=== PATIENT | female | born 1980 | race Caucasian/White ===

== ENCOUNTER 2016-06-05 18:33 | Emergency (ER) | payer BC ==
[~2016-06-05] VITALS: Ht 172.7 cm; Wt 59.6 kg
[~2016-06-05 18:33] MED LIST: IBUP600T44 PO; PRENTAB26 PO
[2016-06-05 18:36] VITALS: TEMP 36.8; Ht 172.7 cm; Wt 59.6 kg
[2016-06-05] MEDS ORDERED: AZITTAB PO (19:18)
[2016-06-05] MEDS ORDERED: PRED20TA PO (19:20)
[2016-06-05] MEDS ORDERED: CITA20TA9 PO (19:22)
--- NOTE | 2016-06-05 19:53 | DIAGNOSTIC IMAGING REPORT ---
CHEST ONE VIEW PORTABLE CLINICAL HISTORY: right sided chest pain pain COMPARISON STUDY: None FINDINGS: The bones soft tissues and hemidiaphragms are normal. The cardiomediastinal silhouette is normal. The lungs are clear. The pulmonary vasculature is normal. IMPRESSION: Negative chest. Electronically signed by: Logan Menjivar M.D. 06/05/2016 7:50 PM Dictated Date/Time: 06/05/2016 7:50 PM
[2016-06-05 19:59] LABS: BASO % 0.2 %; BASO ABS # 0.04 K/uL (0-0.2); COMPLETE YES; EOS % 0.6 %; HEMATOCRIT 37.4 % (37-47); IG% 0.3 %; LYMPH % 20.8 %; LYMPH ABS # 4.78 K/uL (1.2-3.4); MEAN CELL VOLUME 91.7 fL (80-100); MEAN CORPUSCULAR HEMOGLOBIN 32.4 pg (25-34); MEAN CORPUSCULAR HGB CONC 35.3 g/dl (32-36); MEAN PLATELET VOLUME 9.3 fL (7.4-10.4); MONO % 11.2 %; NEUT % 66.9 %; PLATELET COUNT 363 K/uL (130-400); RED BLOOD COUNT 4.08 M/uL (4.2-5.4); WHITE BLOOD COUNT 22.95 K/uL (4.8-10.8)
[2016-06-05 20:00] VITALS: O2SAT 98
[2016-06-05 20:28] LABS: ALT/SGPT 24 U/L (12-78); AST/SGOT 14 U/L (15-37); BLOOD UREA NITROGEN 26 mg/dl (7-18); BUN/CREATININE RATIO 34.6 (10-20); CALCIUM 9.5 mg/dl (8.5-10.1); CARBON DIOXIDE 30 mmol/L (21-32); CHLORIDE 104 mmol/L (98-107); CREATININE 0.75 mg/dl (0.60-1.20); GLUCOSE 92 mg/dl (70-99); POTASSIUM 3.4 mmol/L (3.5-5.1); SODIUM 142 mmol/L (136-145)
[2016-06-05 20:33] LABS: ALB/GLOB RATIO 0.9 (0.9-2); ALKALINE PHOSPHATASE 100 U/L (45-117); CKMB/CK RATIO 1.3 (0-3.0)
[2016-06-05] MEDS ORDERED: OPTIRAY 320 IV PRN (20:45)
--- NOTE | 2016-06-05 21:02 | DIAGNOSTIC IMAGING REPORT ---
CHEST CTA for PULMONARY ARTERIES CT DOSE: 253.14 mGy.cm HISTORY: Chest pain dyspnea TECHNIQUE: Multiaxial CT images of the chest were performed following the intravenous administration of contrast to evaluate the pulmonary arteries. Maximal intensity projection images were also obtained. COMPARISON STUDY: None. FINDINGS: There is a normal caliber thoracic aorta with no evidence for dissection. There is no evidence for pulmonary embolus. No pleural effusions. No pneumothorax. The liver and spleen are unremarkable. No mediastinal or hilar lymphadenopathy. The central airways are patent. The lungs demonstrate scattered consolidative infiltrative changes. These are seen in the right upper lobe anteriorly, medial aspect left lower lobe, to a minimal extent right base within the right lower lobe distribution. These areas are presumably inflammatory although follow-up to resolution is suggested. IMPRESSION: 1. Study is negative for pulmonary embolus. 2. Consolidated parenchymal infiltrative changes anterior aspect right upper lobe, left and to a lesser extent right lower lobe distributions. 3. Although most likely inflammatory, close follow-up to complete resolution is indicated. Electronically signed by: Logan Menjivar M.D. 06/05/2016 9:00 PM Dictated Date/Time: 06/05/2016 8:58 PM
[2016-06-05 21:09] VITALS: BP 124/85; PULSE 83; O2SAT 99
[2016-06-05] MEDS ORDERED: AMOX875T PO (21:24)
--- NOTE | 2016-06-05 21:25 | EMERGENCY ROOM VISIT NOTE ---
History First contact with patient: 19:00 Chief Complaint: CHEST PAIN Stated Complaint: CHEST PAIN Nursing Triage Summary: Pt reports chest pain that started 1hour [employer] while watching daughter at [employer] class. Denies any cardiac hx. Pain gets worse with deep breath. History of Present Illness The patient is a 35 year old female who presents to the Emergency Room with complaints of right sided chest pain which began one hour prior to arrival. The patient states that she was watching her daughter at [employer] practice when she developed a sharp right-sided chest pain with associated shortness of breath. She took Aleve with some relief of the pain. She states that she was diagnosed with bronchitis last week by her primary care provider and has been taking a Z-Lonny and steroids for the past 4 days. She states her symptoms have not been improving. She does report some issues with her ribs in March. She states that she was having pain in the right ribs and was told that they may be inflamed and was given a course of steroids at that time as well. The patient states that she had fevers last week, but denies any fevers today. She does not smoke. She denies any history or family history of blood clots. She does not take control pills. The patient denies any nausea, vomiting, abdominal pain, syncope or palpitations. Review of Systems A complete 10-point Review of Systems was discussed with the patient, with pertinent positives and negatives listed in the History of Present Illness. All remaining Review of Systems questions can be considered negative unless otherwise specified. Past Medical/Surgical History Medical Problems: (1) Bilateral tubal ligation (2) section Social History Smoking Status: Never Smoker Alcohol Use: occasionally Current/Historical Medications Scheduled Amoxicillin & Pot Clavulanate (Augmentin 875-125 mg), 1 TAB PO BID Azithromycin (Zithromax Z-Lonny), 1 PKT PO UD Citalopram Hydrobromide (Celexa), 20 MG PO DAILY Multivit/Min/Iron/Fol Ac/Pren ( Vitamin), 1 TAB PO DAILY Prednisone (Prednisone), 40 MG PO DAILY Allergies Coded Allergies: Cephalosporins (Verified Allergy, Unknown, 08/27/11) Doxycycline (Verified Allergy, Unknown, 08/27/11) Cefazolin (Verified Allergy, UNSURE, 01/19/12) PATIENT TOOK CHILD AND IS UNSURE OF REACTION. Physical Exam Vital Signs Date Time Temp Pulse Resp B/P Pulse Ox O2 Delivery O2 Flow Rate FiO2 06/05/16 21:09 83 18 124/85 99 Room Air 06/05/16 20:00 85 18 117/72 99 Room Air 06/05/16 20:00 98 Room Air 06/05/16 20:00 98 Room Air 06/05/16 18:36 36.8 84 18 133/78 99 Room Air Physical Exam VITALS: Vitals are noted on the nurse's note and reviewed by myself. Vital signs stable. GENERAL: This is a 35-year-old female, in no acute distress, nondiaphoretic, well-developed well-nourished. SKIN: Capillary reflex less than 2 seconds. HEENT: Normocephalic. PERRLA. EOMI. Nares patent. Mucous membranes moist. Neck is supple without nuchal rigidity. HEART: Regular rate and rhythm without murmurs gallops or rubs. LUNGS: Clear to auscultation bilaterally without wheezes, rales or rhonchi. No retractions or accessory muscle use. ABDOMEN: Positive bowel sounds x 4. Soft, nontender to palpation. MUSCULOSKELETAL: Reproducible tenderness over the right anterior chest wall. NEURO: Patient was alert and oriented to person place and time. Medical Decision & Procedures ER Provider Diagnostic Interpretation: CHEST ONE VIEW PORTABLE FINDINGS: The bones soft tissues and hemidiaphragms are normal. The cardiomediastinal silhouette is normal. The lungs are clear. The pulmonary vasculature is normal. IMPRESSION: Negative chest. CHEST CTA for PULMONARY ARTERIES FINDINGS: There is a normal caliber thoracic aorta with no evidence for dissection. There is no evidence for pulmonary embolus. No pleural effusions. No pneumothorax. The liver and spleen are unremarkable. No mediastinal or hilar lymphadenopathy. The central airways are patent. The lungs demonstrate scattered consolidative infiltrative changes. These are seen in the right upper lobe anteriorly, medial aspect left lower lobe, to a minimal extent right base within the right lower lobe distribution. These areas are presumably inflammatory although follow-up to resolution is suggested. IMPRESSION: 1. Study is negative for pulmonary embolus. 2. Consolidated parenchymal infiltrative changes anterior aspect right upper lobe, left and to a lesser extent right lower lobe distributions. 3. Although most likely inflammatory, close follow-up to complete resolution is indicated. Laboratory Results 06/05/16 19:50 Red Blood Count 4.08, Mean Corpuscular Volume 91.7, Mean Corpuscular Hemoglobin 32.4, Mean Corpuscular Hemoglobin Concent 35.3, Mean Platelet Volume 9.3, Neutrophils (%) (Auto) 66.9, Lymphocytes (%) (Auto) 20.8, Monocytes (%) (Auto) 11.2, Eosinophils (%) (Auto) 0.6, Basophils (%) (Auto) 0.2, Neutrophils # (Auto ) 15.34, Lymphocytes # (Auto) 4.78, Monocytes # (Auto) 2.58, Eosinophils # (Auto ) 0.13, Basophils # (Auto) 0.04 06/05/16 19:50 Test 06/05/16 19:50 White Blood Count 22.95 K/uL (4.8-10.8) Red Blood Count 4.08 M/uL (4.2-5.4) Hemoglobin 13.2 g/dL (12.0-16.0) Hematocrit 37.4 % (37-47) Mean Corpuscular Volume 91.7 fL (80-100) Mean Corpuscular Hemoglobin 32.4 pg (25-34) Mean Corpuscular Hemoglobin Concent 35.3 g/dl (32-36) Platelet Count 363 K/uL (130-400) Mean Platelet Volume 9.3 fL (7.4-10.4) Neutrophils (%) (Auto) 66.9 % Lymphocytes (%) (Auto) 20.8 % Monocytes (%) (Auto) 11.2 % Eosinophils (%) (Auto) 0.6 % Basophils (%) (Auto) 0.2 % Neutrophils # (Auto) 15.34 K/uL (1.4-6.5) Lymphocytes # (Auto) 4.78 K/uL (1.2-3.4) Monocytes # (Auto) 2.58 K/uL (0.11-0.59) Eosinophils # (Auto) 0.13 K/uL (0-0.5) Basophils # (Auto) 0.04 K/uL (0-0.2) RDW Standard Deviation 42.3 fL (36.4-46.3) RDW Coefficient of Variation 12.5 % (11.5-14.5) Immature Granulocyte % (Auto) 0.3 % Immature Granulocyte # (Auto) 0.08 K/uL (0.00-0.02) D-Dimer 650 ug/L FEU (0-500) Anion Gap 8.0 mmol/L (3-11) Est Creatinine Clear Calc Drug Dose 98.5 ml/min Estimated GFR () 119.7 Estimated GFR (Non- 103.3 BUN/Creatinine Ratio 34.6 (10-20) Calcium Level 9.5 mg/dl (8.5-10.1) Total Bilirubin 0.5 mg/dl (0.2-1) Aspartate Amino Transf (AST/SGOT) 14 U/L (15-37) Alanine Aminotransferase (ALT/SGPT) 24 U/L (12-78) Alkaline Phosphatase 100 U/L (45-117) Total Creatine Kinase 39 U/L (26-192) Creatine Kinase MB 0.5 ng/ml (0.5-3.6) Creatine Kinase MB Ratio 1.3 (0-3.0) Troponin I < 0.015 ng/ml (0-0.045) Total Protein 8.6 gm/dl (6.4-8.2) Albumin 4.0 gm/dl (3.4-5.0) Globulin 4.6 gm/dl (2.5-4.0) Albumin/Globulin Ratio 0.9 (0.9-2) Lipase 98 U/L (73-393) Medications Administered Medications (Trade) Dose Ordered Sig/Toney Route Start Time Stop Time Status Last Admin Dose Admin Amoxicillin/ Clavulanate Potassium (Augmentin Tab) 1,750 mg UD ONCE PO 06/05/16 21:30 06/05/16 21:31 DC 06/05/16 21:30 1,750 MG ECG Rate (beats per minute): 71 Rhythm: normal sinus Findings: no acute ischemic change, no ectopy Comparison ECG Date: no prior available ED Course The patient was evaluated as above. Labs were drawn and IV access was obtained. Chest x-ray and CT for PE was performed and read by radiology as above. Patient was reevaluated and given Augmentin. Discharge instructions were reviewed with the patient. The patient verbalized understanding of my assessment and treatment plan and was discharged home in good condition. Medical Decision Differential diagnosis includes pneumonia, pulmonary embolism, acute bronchitis , among others.. The patient is a 35-year-old female who presents today complaining of persistent cough and shortness of breath. Labs revealed a leukocytosis of 23, 000, consistent with infection as well as the patient's recent steroid use. No concerning anemia or electrolyte abnormalities. Chest x-ray was unremarkable. EKG showed a normal sinus rhythm. Troponin was not elevated. Patient's d- dimer was found to be elevated. A CT of the chest did show evidence of pneumonia. As the patient has been treated with Zithromax and steroids, I will place her on Augmentin. She was instructed to follow-up with her primary care provider. The patient's case was reviewed with Dr. Lafleur, ED attending physician, who agreed with my assessment and treatment plan. Based on the patient's presentation and work up, I feel the patient is stable for outpatient treatment. The patient was educated to the emergency department for any worsening of their current condition or new/concerning symptoms. The patient will follow up with her primary care provider this week. Impression Primary Impression: Pneumonia Departure Information Dispostion Home / Self-Care Condition GOOD Prescriptions Amoxicillin & Pot Clavulanate (Augmentin 875-125 mg) 1 Tab Tab 1 TAB PO BID for 7 Days, #14 TAB Prov: Zaina Harris .ANUP 06/05/16 Referrals Sheila Mahajan M.D. (PCP) Patient Instructions My [facility] Additional Instructions You were prescribed Augmentin to be taken twice daily as prescribed. This is an antibiotic. All antibiotics have the potential to cause diarrhea. Stop this medication and contact a medical provider if you were to develop any significant adverse side effects including: wheezing, shortness of breath, passing out, vomiting, or a diffuse rash. Always take antibiotics as directed and COMPLETE the ENTIRE course regardless of the improvement of your symptoms. For pain control, you can use the following [id number] medicines (if >12 yo): - Regular strength (325mg/tab) Tylenol (acetaminophen) 2 tabs every 4-6 hours as needed. Do not exceed 12 tablets in a 24 hour period. Avoid taking more than 4 grams (4000 mg) of Tylenol per day. This includes any other sources of acetaminophen you may take on a regular basis. - Regular strength (200 mg/tab) Advil (ibuprofen) 1-2 tabs every 4-6 hours as needed. Do not exceed a dose of 3200 mg per day. Finish taking the medications as prescribed. Follow-up with your primary care provider within one week for follow-up. Return to the emergency department with any worsening shortness of breath, high fevers or any other new/concerning symptoms.
[2016-06-05] MEDS ORDERED: AMOXICILLIN/CLAVULANATE TAB 875 MG TAB PO ONE (21:30)
== END 2016-06-05 21:35 | disposition home or self-care (01) ==
LOC: C.EDB 18:33 → C.EDC 21:35
DX: J18.9 Pneumonia, unspecified organism (principal); Z98.51 Tubal ligation status

== ENCOUNTER 2022-07-27 20:59 | Observation (INO) ==
[2022-07-27 21:41] LABS: Hematocrit (blood only) 37.9 % (37.0-47.0); Hemoglobin 12.9 g/dl (12.0-16.0); Mean Corpuscular Hemoglobin 31.5 pg (25.0-34.0); Mean Corpuscular Volume 92.4 fL (80.0-100.0); Mean Platelet Volume 9.9 fL (9.4-12.4); Platelet Count 351 K/uL (130-400); RDW Coefficient of Variation 12.2 % (11.5-14.5); RDW Standard Deviation 41.5 fL (36.4-46.3); White Blood Count 11.21 K/ul (4.8-10.8)
[2022-07-27 21:46] LABS: BUN Creatinine Ratio 27.3 (10-20); Calcium 9.5 mg/dl (8.6-10.3); Creatinine Clr Calc Pharmacy 113.2 ml/min; Est GFR (African American) 127.2 ml/min; Est GFR (Non-African American) 109.7 ml/min; Potassium 3.4 mmol/L (3.5-5.1)
[2022-07-27] MEDS ORDERED: ACETAMINOPHEN 1,000 MG/100 ML VIAL IV STA (22:13)
[2022-07-27] MEDS ORDERED: SODIUM CHLORIDE 0.9% 500 ML IV ONE (22:13)
--- NOTE | 2022-07-27 22:15 | Emergency Department Note ---
Impression & Plan Vaginal bleeding, Pelvic pain, S/P hysterectomy ED Provider Note ED Provider Note NAME: ERNIE HOUSE AGE:41 SEX: Female : 1980 ARRIVES VIA: Private vehicle INFORMANT: Patient ED PROVIDER(s): Trinity Machado DO CHIEF COMPLAINT: Vaginal bleeding HPI: This is a 41 yo female who presents following the abrupt onset of vaginal bleeding earlier this evening. Patient states she felt as if she needed to urinate however when she went to the restroom she began having bleeding and passage of clot followed shortly after by pelvic pain and cramping. Patient underwent a hysterectomy on 06/30/2022. She states she felt as though she has been doing well and had her 2 week follow up appointment. She denies intercourse of anything in the vagina. Denies fevers/chills, nausea/vomiting, other abdominal pain or back pain. No use of antiplatelet or anticoagulation medication. PAST MEDICAL HISTORY:See Below PAST SURGICAL HISTORY:See Below FAMILY HISTORY:See Below SOCIAL HISTORY:See Below HOME MEDICATIONS:See Below ALLERGIES:See Below VITALS:See Below PHYSICAL EXAMINATION: GENERAL: alert, well appearing, well nourished, no distress, non-toxic EYE EXAM: normal conjunctiva, PERRL and EOM's grossly intact OROPHARYNX: no exudate, no erythema, lips, buccal mucosa, and tongue normal and mucous membranes are moist NECK: supple, no nuchal rigidity, no adenopathy, non-tender LUNGS: Clear to auscultation. Normal chest wall mechanics, no w/r/r HEART: no murmurs, S1 normal and S2 normal ABDOMEN: abdomen soft, non-tender, normo-active bowel sounds, no masses, no rebound or guarding. : Pelvic exam performed with nurse environmental health inspector, normal external genitalia, no obvious prolapse, patient with immediate discomfort upon attempt at inserting smallest available speculum with blood immediately obscuring most of the view, visible vaginal mucosa normal appearing BACK: Back is symmetrical on inspection and there is no deformity, no midline tenderness, no CVA tenderness. SKIN: no rashes, petechiae, orbruising UPPER EXTREMITIES: upper extremities are grossly normal. FROM, nml pulses b/l. LOWER EXTREMITIES: No pitting edema. FROM, nml pulses b/l. NEURO EXAM: Normal sensorium, cranial nerves II-XII grossly intact, normal speech, no facial droop,nogross weakness of arms, no gross weakness of legs. Gross sensation intact. No ataxia. Vital Signs: reviewed and remarkable Differential Diagnosis: post op bleeding, ruptured cuff, prolapse, erosion into blood vessel, post op infection as well as others were considered MEDICAL DECISION MAKING: THis is a 41 yo female s/p recent hysterectomy who presents with abrupt onset vaginal bleeding. Patient with obvious bleeding. Labs drawn and sent, IV established, and patient placed on telemetry. AFter my exam, IVF started, IV tylenol given and case discussed with Dr. Mahoney due to concerning presentation and exam. Dr. Mahoney evaluated the patient in the ER and would like to take her to the OR as soon as feasible. In the interim she requested a CT a/p be performed and she ordered blood for transfuion which was started at beside prior to her going to the ER. VS remained stable in the ER and initial H/H reassuring, however large amount blood noted during exam and with helping patient to the bathroom and concern for significant post op complication. Consultation(s): 2211: Discussed with Dr. Mahoney. 2232: Patient seen and evaluated by Dr. Mahoney in the emergency room. She plans on taking the patient to the OR. She does request that a CT of the abdomen/pelvis to be performed urgently as a precaution. 2255: Dr. Mahoney requesting blood transfusion be started as soon as available due to concern for ongoing losses based on history and exam. Patient will go to the OR as soon as ready. I had patient sign blood consent at bedside and transfusion started. ER Treatment Provided: See below Diagnostics Interpreted By Me: -ECG: [] -Cardiac Monitoring: An order was placed for continuous cardiac monitoring. The monitor shows a rate of [] with [] rhythm. -Laboratory studies: As stated above and show below. -Imaging studies: [] Triage Nursing Note Reviewed Prior/Outside Records Reviewed Procedures: [] Critical Care: Critical care of 42 min performed to assess and manage high likelihood of life- threatening vaginal bleeding, involving labs and imaging performed with assess ment to evaluate vaginal bleeding diagnosis with frequent reassessment. This time includes bedside time, treatment discussions with patient/family/consultants, documentation time and excludes procedure time. Past Med/Surg History Medical History Acid reflux Anxiety Endometriosis Fibromyalgia Hiatal hernia History of gastric ulcer History of kidney stones Infertility Migraine headache Nausea and vomiting after administration of anesthetic agent Surgical History deliv NOS-unsp one in 2010 and one in 2020 H/O colonoscopy Dr. Pulliam - [facility] - 04/04/21. H/O removal of cyst left breast History of delivery x 2 History of colonoscopy History of cystoscopy with stent then removal History of dilatation and curettage History of esophagogastroduodenoscopy (EGD) History of laparoscopy History of loop electrical excision procedure (LEEP) History of oral surgery History of root canal procedure (08/2020) 09/17/20 History of tonsillectomy and adenoidectomy History of tubal ligation History of wisdom tooth extraction S/P endometrial ablation Family History Father Diabetes Hypertension Dyslipidemia Kidney stone Prostate cancer Stroke MINOR Mother Heart disease Hypertension Depression Cancer of appendix Colonic polyp COPD (chronic obstructive pulmonary disease) Brother Hypertension Dyslipidemia Drinking problem Amputation of leg Other Myocardial infarction Denies family history of Ovarian cancer Crohn's disease Breast cancer Colorectal cancer Ulcerative colitis Social History Smoking Status: Never smoker Second Hand Exposure: Yes (as kid); Do You Dip or Chew Tobacco: No; Hx Alcohol Use: Yes Alcohol type: beer, wine and hard liquor Alcohol Intake Frequency: Monthly or Less Hx Substance Use: Yes Substance Use Type Other:: medical marijuna occ Preferred Language: British Communication Ability: Effective Litigation Partner Required: No Beliefs That Will Affect Care: None marital status: Current Living Situation: Spouse Current Living Situation Comment: Spouse, 2 daughters current occupational status: employed 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[employer]) How many Children do You have: 2 Feels Safe at Home: Yes Childhood Exposure to Second-Hand Smoke: Yes Dental Care, Regularly: Yes Physical Activity Frequency: 5-6 Times per Week Seatbelt Use: always Sunscreen Use: Yes Do you think of yourself as: straight/heterosexual Assistive Devices: Contacts and Glasses Allergies Allergies Allergy/AdvReac Type Severity Reaction Status Date / Time cefazolin Allergy Unknown CHILDHOOD Verified 07/27/22 22:45 ALLERGY--DON'T REMEMBER Cephalosporins Allergy Unknown CHILDHOOD Verified 07/27/22 22:45 ALLERGY--DON'T REMEMBER doxycycline Allergy Unknown CAN'T Verified 07/27/22 22:45 REMEMBER Home Meds Home Medications Medication Instructions Recorded Confirmed ondansetron HCl 4 mg tablet 4 mg PO Q8H PRN nausea and vomiting 10/14/20 07/27/22 hydroxyzine HCl 25 mg tablet 25 mg PO QID PRN Anxiety 01/25/21 07/27/22 citalopram 20 mg tablet 20 mg PO QAM 04/17/22 07/27/22 rimegepant 75 mg disintegrating 75 mg PO DIRECTED PRN migraine 07/27/22 07/27/22 tablet (Nurtec ODT) headache Previous Rx's Medication Instructions Recorded pantoprazole 40 mg tablet,delayed 40 mg PO QAM gerd/gastritis #90 07/17/22 release (Protonix) tabs Results & Data (ED) Vital Signs Vital Signs - 24 hr 07/27/22 22:30 07/27/22 23:20 07/27/22 22:56 Temperature 36.8 C Temperature Source Oral Pulse Rate 89 70 68 Pulse Rate [Left Radial] Pulse Rhythm [Left Radial] Pulse Strength [Left Radial] Respiratory Rate 21 18 21 Respiratory Effort / Characteristics Respiratory Depth Respiratory Pattern Blood Pressure 128/101 H 132/75 122/73 Blood Pressure [Left Arm] Blood Pressure Mean 110 94 89 Blood Pressure Mean [Left Arm] Pulse Oximetry 100 100 100 Oxygen Delivery Method Room Air Room Air Oxygen Flow Rate 07/27/22 23:00 07/27/22 23:15 07/27/22 23:21 Temperature Temperature Source Pulse Rate 65 70 64 Pulse Rate [Left Radial] Pulse Rhythm [Left Radial] Pulse Strength [Left Radial] Respiratory Rate 14 24 23 Respiratory Effort / Characteristics Respiratory Depth Respiratory Pattern Blood Pressure 126/82 132/75 127/74 Blood Pressure [Left Arm] Blood Pressure Mean 96 94 91 Blood Pressure Mean [Left Arm] Pulse Oximetry 100 100 100 Oxygen Delivery Method Room Air Room Air Room Air Oxygen Flow Rate 07/28/22 01:02 07/28/22 01:12 Temperature 36 C L 36 C L Temperature Source Oral Oral Pulse Rate Pulse Rate [Left Radial] 102 H 83 Pulse Rhythm [Left Radial] Regular Regular Pulse Strength [Left Radial] Normal Normal Respiratory Rate 18 18 Respiratory Effort / Characteristics Non-Labored Spontaneous Respiratory Depth Normal Respiratory Pattern Regular Blood Pressure Blood Pressure [Left Arm] 112/82 135/93 Blood Pressure Mean Blood Pressure Mean [Left Arm] 92 107 Pulse Oximetry 95 100 Oxygen Delivery Method Oxymask Room Air Oxygen Flow Rate 6 Laboratory Data 07/27/22 21:15 07/27/22 21:15 Lab Results 07/27/22 07/27/22 07/27/22 Range/Units 21:15 21:15 21:15 WBC 11.21 H (4.8-10.8) K/ul RBC 4.10 L (4.20-5.40) M/uL Hgb 12.9 (12.0-16.0) g/dl Hct 37.9 (37.0-47.0) % MCV 92.4 (80.0-100.0) fL MCH 31.5 (25.0-34.0) pg MCHC 34.0 (32.0-36.0) g/dL RDW Std Deviation 41.5 (36.4-46.3) fL RDW Coeff of Violet 12.2 (11.5-14.5) % Plt Count 351 (130-400) K/uL MPV 9.9 (9.4-12.4) fL Sodium 138 (136-145) mmol/L Potassium 3.4 L (3.5-5.1) mmol/L Chloride 104 (98-107) mmol/L Carbon Dioxide 24 (21-32) mmol/L Anion Gap 10 (3-11) BUN 18 (6-23) mg/dl Creatinine 0.66 (0.6-1.2) mg/dl Est Cr Clr Drug Dosing 113.2 ml/min Est GFR ( Amer) 127.2 ml/min Est GFR (Non-Af Amer) 109.7 ml/min BUN/Creatinine Ratio 27.3 H (10-20) Glucose 98 (70-99(Fasting)) mg/dl Calcium 9.5 (8.6-10.3) mg/dl SARS-CoV-2, RNA, NAAT (NEGATIVE) Blood Type A Positive Antibody Screen NEGATIVE Crossmatch See Detail 07/27/22 Range/Units Unknown WBC (4.8-10.8) K/ul RBC (4.20-5.40) M/uL Hgb (12.0-16.0) g/dl Hct (37.0-47.0) % MCV (80.0-100.0) fL MCH (25.0-34.0) pg MCHC (32.0-36.0) g/dL RDW Std Deviation (36.4-46.3) fL RDW Coeff of Violet (11.5-14.5) % Plt Count (130-400) K/uL MPV (9.4-12.4) fL Sodium (136-145) mmol/L Potassium (3.5-5.1) mmol/L Chloride (98-107) mmol/L Carbon Dioxide (21-32) mmol/L Anion Gap (3-11) BUN (6-23) mg/dl Creatinine (0.6-1.2) mg/dl Est Cr Clr Drug Dosing ml/min Est GFR ( Amer) ml/min Est GFR (Non-Af Amer) ml/min BUN/Creatinine Ratio (10-20) Glucose (70-99(Fasting)) mg/dl Calcium (8.6-10.3) mg/dl SARS-CoV-2, RNA, NAAT NEGATIVE (NEGATIVE) Blood Type Antibody Screen Crossmatch Administered Medications Discontinued Medications Bupivacaine HCl (Bupivacaine 0.5 % 5 Mg/1 Ml Mpf 30ml Vial) Confirm Administered Dose 30 ml .ROUTE .STK-MED ONE Stop: 07/27/22 23:27 Last Admin: 07/28/22 00:48 Dose: 10 ml Documented By: MONSERRAT Clindamycin Phosphate (Clindamycin 900 Mg/D5w 50 Ml Bag) Confirm Administered Dose 900 mg IV .STK-MED ONE Stop: 07/28/22 00:02 Last Admin: 07/28/22 00:05 Dose: 900 mg Documented By: MALCOLM Hydromorphone HCl (Hydromorphone Inj 1 Mg/Ml Syringe) 0.25 mg IV Q5M PRN PRN Reason: PACU Use Only-Pain Stop: 07/28/22 08:22 Last Admin: 07/28/22 01:24 Dose: 0.25 mg Documented By: Admin: 07/28/22 01:17 Dose: 0.25 mg Documented By: VANNESA Sodium Chloride (Nss) 500 mls @ 999 mls/hr IV .Q31M ONE Stop: 07/27/22 22:43 Last Admin: 07/27/22 22:41 Dose: 999 mls/hr Documented By: IAN Acetaminophen (Ofirmev) 1,000 mg in 100 mls @ 400 mls/hr IV NOW STA Stop: 07/27/22 22:27 Last Infusion: 07/27/22 22:55 Dose: 0 mls/hr Documented By: Admin: 07/27/22 22:40 Dose: 400 mls/hr Documented By: IAN Ioversol (Optiray 320 100ml) 86 ml IV ONCE ONE Stop: 07/27/22 22:51 Last Admin: 07/27/22 22:50 Dose: 86 ml Documented By: LUCAS Ketorolac Tromethamine (Ketorolac 30 Mg/Ml Vial) 30 mg IV Q6H PRN PRN Reason: Pain Stop: 08/02/22 01:22 Last Admin: 07/28/22 02:06 Dose: 30 mg Documented By: VANNESA Meperidine HCl (Meperidine Hcl 25 Mg/Ml Carp/Vial) 12.5 mg IV Q5M PRN PRN Reason: Surgi Pain/Chills/Rigors Stop: 07/28/22 09:03 Last Admin: 07/28/22 01:11 Dose: 12.5 mg Documented By: VANNESA Ondansetron HCl (Ondansetron Inj 2 Mg/Ml 2 Ml Vial) Confirm Administered Dose 4 mg .ROUTE .STK-MED ONE Stop: 07/27/22 22:34 Last Admin: 07/27/22 22:41 Dose: 4 mg Documented By: IAN Oxycodone/Acetaminophen (Oxycodone/Acetaminophen 5mg/325mg Tab) 1 - 2 tab PO Q4H PRN PRN Reason: VAUGHAN, Cramping or edema Stop: 08/11/22 01:22 Last Admin: 07/28/22 07:03 Dose: 2 tab Documented By: [id number] Discharge Plan Visit Data Chief Complaint: Vaginal Bleeding Stated Complaint: HYSTERECTOMY 06/30, VAGINAL BLEEDING SEVERELY ED Provider: Trinity Machado Discharge Problem: Vaginal bleeding, Pelvic pain, S/P hysterectomy Patient Disposition: Admitted As Inpatient Discharge Instructions Interventions: ED Discharge Assessment Last Done: 07/27/22 23:26
[2022-07-27] MEDS ORDERED: ONDANSETRON INJ 2 MG/ML 2 ML VIAL ONE (22:33)
[2022-07-27] MEDS ORDERED: ONDANSETRON INJ 2 MG/ML 2 ML VIAL IV PRN ×2 (22:36→23:38)
[2022-07-27] MEDS ORDERED: SODIUM CHLORIDE 0.9% 250 ML IV PRN (22:46)
[2022-07-27] MEDS ORDERED: OPTIRAY 320 100ml IV ONE (22:50)
--- NOTE | 2022-07-27 22:56 | OB/GYN Consultation ---
Date of Consultation July 27, 2022 Assessment & Plan (1) Vaginal bleeding: Recommend take to OR for emergent exam under anesthesia, repair of vaginal cuff, obtain hemostasis. Reviewed consent form with patient, she is agreeable. Questions answered. Suspect blood loss is likely from separation of vaginal cuff, however will be able to see better when patient is under anesthesia and can perform better exam. She is agreeable to blood transfusion - I have ordered 2u PRBC given the acute hemorrhage in the ER. Most recent Hgb was 12.9, however given the amount of bleeding that she has had, recommend transfusion for acute hemorrhage. I called the blood bank, and the ER to initiate blood transfusion and placed orders. History of Present Illness Reason for Consultation: vaginal bleeding Requesting Physician: Dr Machado History of Present Illness 41yo s/p laparoscopic hysterectomy on 06/30/[facility]. She was at her child's softball game, when she felt like she had to urinate, then started bleeding instead of urinating. She came directly to the ER, and was found to have a large amount of bleeding. Attempt at speculum exam by ER physician was too painful and too bloody to continue. She has not eaten this afternoon or evening. She had been feeling well after the hysterectomy until [facility]. She states she has not lifted anything heavier than 25 lbs, but has been getting back to normal activities otherwise. No bleeding until today. During my discussion and examination in the ER, patient became more pale, began to feel nauseated, and threw up clear spit. She felt like she was getting acutely worse. Allergies Allergy/AdvReac Type Severity Reaction Status Date / Time cefazolin Allergy Unknown CHILDHOOD Verified 07/27/22 22:45 ALLERGY--DON'T REMEMBER Cephalosporins Allergy Unknown CHILDHOOD Verified 07/27/22 22:45 ALLERGY--DON'T REMEMBER doxycycline Allergy Unknown CAN'T Verified 07/27/22 22:45 REMEMBER Home Medications Medication Instructions Recorded Confirmed Type ondansetron HCl 4 mg tablet 4 mg PO Q8H PRN nausea and vomiting 10/14/20 07/27/22 History hydroxyzine HCl 25 mg tablet 25 mg PO QID PRN Anxiety 01/25/21 07/27/22 History citalopram 20 mg tablet 20 mg PO QAM 04/17/22 07/27/22 History pantoprazole 40 mg tablet,delayed 40 mg PO QAM gerd/gastritis #90 07/17/22 07/27/22 Rx release (Protonix) tabs rimegepant 75 mg disintegrating 75 mg PO DIRECTED PRN migraine 07/27/22 07/27/22 History tablet (Nurtec ODT) headache Patient History Medical History (Updated 07/27/22 @ 22:58 by Lizette Mahoney, DO) Acid reflux Anxiety Endometriosis Fibromyalgia Hiatal hernia History of gastric ulcer History of kidney stones Infertility Migraine headache Nausea and vomiting after administration of anesthetic agent Surgical History (Updated 07/12/22 @ 09:02 by Tom Suarez MD, FACOG) deliv NOS-unsp one in 2010 and one in 2020 H/O colonoscopy Dr. Pulliam - [facility] - 04/04/21. H/O removal of cyst left breast History of delivery x 2 History of colonoscopy History of cystoscopy with stent then removal History of dilatation and curettage History of esophagogastroduodenoscopy (EGD) History of laparoscopy History of loop electrical excision procedure (LEEP) History of oral surgery History of root canal procedure (08/2020) 09/17/20 History of tonsillectomy and adenoidectomy History of tubal ligation History of wisdom tooth extraction S/P endometrial ablation Family History Father Diabetes Hypertension Dyslipidemia Kidney stone Prostate cancer Stroke MINOR Mother Heart disease Hypertension Depression Cancer of appendix Colonic polyp COPD (chronic obstructive pulmonary disease) Brother Hypertension Dyslipidemia Drinking problem Amputation of leg Other Myocardial infarction Denies family history of Ovarian cancer Crohn's disease Breast cancer Colorectal cancer Ulcerative colitis Social History Smoking Status: Never smoker Second Hand Exposure: Yes (as kid); Do You Dip or Chew Tobacco: No; Hx Alcohol Use: Yes Alcohol type: beer, wine and hard liquor Alcohol Intake Frequency: Monthly or Less Hx Substance Use: Yes Substance Use Type Other:: medical marijuna occ Preferred Language: Greek Communication Ability: Effective Head Librarian Required: No Beliefs That Will Affect Care: None marital status: Current Living Situation: Spouse Current Living Situation Comment: Spouse, 2 daughters current occupational status: employed 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 Tearful. Neck: the appearance of the neck was normal Pulmonary: no respiratory distress, normal respiratory rhythm and effort Cardiovascular: heart rate and rhythm were normal Abdomen: soft, non-tender Genitourinary: Normal external genitalia. Large amount of blood/clots in chux pad in ER - would estimate visually approx 500cc. Neurological: The patient was oriented to person, place, and time. Mood and affect were appropriate. Extremities: No edema Results & Data Vital Signs (Past 12 Hours) Vital Signs Temp Pulse Resp BP Pulse Ox O2 Del Method 07/27/22 22:30 89 21 128/101 H 100 Room Air 07/27/22 21:45 77 07/27/22 21:31 70 18 119/79 100 Room Air 07/27/22 21:22 100 Room Air 07/27/22 21:00 36.5 C 94 H 17 135/102 H 100 Room Air PG Care Time/CCT Total # of Minutes Spent Total Time Spent with Patient: Total time spent is greater than 50% in coordination of care (as documented) at patient's floor/unit and/or counseling patient: Coding Level of Care Code 11089 OFFICE CONSULT LVL M Diagnoses Vaginal bleeding N93.9
--- NOTE | 2022-07-27 23:01 | History & Physical Report ---
Date of Service July 27, 2022 Assessment & Plan (1) Vaginal bleeding: Plan: Proceeding to OR for emergent exam under anesthesia, repair of vaginal cuff, obtain hemostasis. Reviewed consent form in ER with patient, she is agreeable. Questions answered. Suspect blood loss is likely from separation of vaginal cuff, however will be able to see better when patient is under anesthesia and can perform better exam. 2u PRBC ordered for transfusion to start now. History of Present Illness Chief Complaint: vaginal bleeding Primary Care Provider: Sharyn Liu, DO 41yo s/p laparoscopic hysterectomy on 06/30/22 presented to ER [facility] with vaginal bleeding. She was at her child's softball game, when she felt like she had to urinate, then started bleeding instead of urinating. She came directly to the ER, and was found to have a large amount of bleeding. Attempt at speculum exam by ER physician was too painful and too bloody to continue. She has not eaten this afternoon or evening. She had been feeling well after the hysterectomy until [facility]. She states she has not lifted anything heavier than 25 lbs, but has been getting back to normal activities otherwise. No bleeding until today. During my discussion and examination in the ER, patient became more pale, began to feel nauseated, and threw up clear spit. She felt like she was getting acutely worse. Allergies Allergy/AdvReac Type Severity Reaction Status Date / Time cefazolin Allergy Unknown CHILDHOOD Verified 07/27/22 22:45 ALLERGY--DON'T REMEMBER Cephalosporins Allergy Unknown CHILDHOOD Verified 07/27/22 22:45 ALLERGY--DON'T REMEMBER doxycycline Allergy Unknown CAN'T Verified 07/27/22 22:45 REMEMBER Home Medications Medication Instructions Recorded Confirmed Type ondansetron HCl 4 mg tablet 4 mg PO Q8H PRN nausea and vomiting 10/14/20 07/27/22 History hydroxyzine HCl 25 mg tablet 25 mg PO QID PRN Anxiety 01/25/21 07/27/22 History citalopram 20 mg tablet 20 mg PO QAM 04/17/22 07/27/22 History pantoprazole 40 mg tablet,delayed 40 mg PO QAM gerd/gastritis #90 07/17/22 07/27/22 Rx release (Protonix) tabs rimegepant 75 mg disintegrating 75 mg PO DIRECTED PRN migraine 07/27/22 07/27/22 History tablet (Nurtec ODT) headache Patient History Medical History (Updated 07/27/22 @ 22:58 by Lizette Mahoney, ) Acid reflux Anxiety Endometriosis Fibromyalgia Hiatal hernia History of gastric ulcer History of kidney stones Infertility Migraine headache Nausea and vomiting after administration of anesthetic agent Surgical History (Updated 07/12/22 @ 09:02 by Tom Suarez MD, FACOG) deliv NOS-unsp one in 2010 and one in 2020 H/O colonoscopy Dr. Pulliam - [facility] - 04/04/21. H/O removal of cyst left breast History of delivery x 2 History of colonoscopy History of cystoscopy with stent then removal History of dilatation and curettage History of esophagogastroduodenoscopy (EGD) History of laparoscopy History of loop electrical excision procedure (LEEP) History of oral surgery History of root canal procedure (08/2020) 09/17/20 History of tonsillectomy and adenoidectomy History of tubal ligation History of wisdom tooth extraction S/P endometrial ablation Family History Father Diabetes Hypertension Dyslipidemia Kidney stone Prostate cancer Stroke MINOR Mother Heart disease Hypertension Depression Cancer of appendix Colonic polyp COPD (chronic obstructive pulmonary disease) Brother Hypertension Dyslipidemia Drinking problem Amputation of leg Other Myocardial infarction Denies family history of Ovarian cancer Crohn's disease Breast cancer Colorectal cancer Ulcerative colitis Social History Smoking Status: Never smoker Second Hand Exposure: Yes (as kid); Do You Dip or Chew Tobacco: No; Hx Alcohol Use: Yes Alcohol type: beer, wine and hard liquor Alcohol Intake Frequency: Monthly or Less Hx Substance Use: Yes Substance Use Type Other:: medical marijuna occ Preferred Language: Thai Communication Ability: Effective Second Steward Required: No Beliefs That Will Affect Care: None marital status: Current Living Situation: Spouse Current Living Situation Comment: Spouse, 2 daughters current occupational status: employed 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 Tearful. Neck: the appearance of the neck was normal Pulmonary: no respiratory distress, normal respiratory rhythm and effort Cardiovascular: heart rate and rhythm were normal Abdomen: soft, non-tender Genitourinary: Normal external genitalia. Large amount of blood/clots in chux pad in ER - would estimate visually approx 500cc. Neurological: The patient was oriented to person, place, and time. Mood and affect were appropriate. Extremities: No edema Results & Data Vital Signs (Past 12 Hours) Vital Signs Temp Pulse Resp BP Pulse Ox O2 Del Method 07/27/22 22:30 89 21 128/101 H 100 Room Air 07/27/22 21:45 77 07/27/22 21:31 70 18 119/79 100 Room Air 07/27/22 21:22 100 Room Air 07/27/22 21:00 36.5 C 94 H 17 135/102 H 100 Room Air Coding Level of Care Code 26243 INT INP/OBS CARE 1/40MIN Diagnoses Vaginal bleeding N93.9
[2022-07-27] MEDS ORDERED: MIDAZOLAM HCL 1 MG/ML 2ML VIAL ONE (23:21)
[2022-07-27] MEDS ORDERED: fentaNYL citrate PF 100 MCG/2 ML VIAL ONE (23:21)
--- NOTE | 2022-07-27 23:23 | Anesthesiology Consultation ---
Date of Service July 27, 2022 Assessment & Plan (1) Encounter for pre-operative examination: Chart Review Chart Review: Acceptable Risk for Surgery (emergent for bleeding) History Surgery Operation Date: 07/27/22 23:05 Proposed Procedures p Laparoscopic Operative - Lizette Mahoney DO Height/Weight Height: 5 ft 8 in Weight: 69.4 kg Allergies Allergy/AdvReac Type Severity Reaction Status Date / Time cefazolin Allergy Unknown CHILDHOOD Verified 07/27/22 22:45 ALLERGY--DON'T REMEMBER Cephalosporins Allergy Unknown CHILDHOOD Verified 07/27/22 22:45 ALLERGY--DON'T REMEMBER doxycycline Allergy Unknown CAN'T Verified 07/27/22 22:45 REMEMBER Medications Home Medications Medication Instructions Recorded Confirmed Last Taken ondansetron HCl 4 mg tablet 4 mg PO Q8H PRN nausea and vomiting 10/14/20 07/27/22 04/11/22 hydroxyzine HCl 25 mg tablet 25 mg PO QID PRN Anxiety 01/25/21 07/27/22 Unknown citalopram 20 mg tablet 20 mg PO QAM 04/17/22 07/27/22 07/27/22 pantoprazole 40 mg tablet,delayed 40 mg PO QAM gerd/gastritis #90 07/17/22 07/27/22 07/27/22 release (Protonix) tabs rimegepant 75 mg disintegrating 75 mg PO DIRECTED PRN migraine 07/27/22 07/27/22 Unknown tablet (Nurtec ODT) headache Past Medical History Medical History Acid reflux Anxiety Endometriosis Fibromyalgia Hiatal hernia History of gastric ulcer History of kidney stones Infertility Migraine headache Nausea and vomiting after administration of anesthetic agent Past Family History Family History Father Diabetes Hypertension Dyslipidemia Kidney stone Prostate cancer Stroke MINOR Mother Heart disease Hypertension Depression Cancer of appendix Colonic polyp COPD (chronic obstructive pulmonary disease) Brother Hypertension Dyslipidemia Drinking problem Amputation of leg Other Myocardial infarction Denies family history of Ovarian cancer Crohn's disease Breast cancer Colorectal cancer Ulcerative colitis Past Surgical History Surgical History deliv NOS-unsp one in 2010 and one in 2020 H/O colonoscopy Dr. Pulliam - [facility] - 04/04/21. H/O removal of cyst left breast History of delivery x 2 History of colonoscopy History of cystoscopy with stent then removal History of dilatation and curettage History of esophagogastroduodenoscopy (EGD) History of laparoscopy History of loop electrical excision procedure (LEEP) History of oral surgery History of root canal procedure (08/2020) 09/17/20 History of tonsillectomy and adenoidectomy History of tubal ligation History of wisdom tooth extraction S/P endometrial ablation Social History Smoking Status: Never smoker Do You Dip or Chew Tobacco: No Hx Alcohol Use: Yes Alcohol type: beer, wine and hard liquor alcohol intake frequency: a few times a month Hx Substance Use: Yes substance use type: marijuana (occasional) Substance Use Type Other:: medical marijuna occ Physical Exam Vital Signs Last Vital Signs Temp 36.8 C 07/27/22 23:20 Pulse 70 07/27/22 23:20 Resp 18 07/27/22 23:20 BP 132/75 07/27/22 23:20 Pulse Ox 100 07/27/22 23:20 O2 Del Method Room Air 07/27/22 22:30 Testing Laboratory Results 07/27/22 21:15 07/27/22 21:15 Blood Type A Positive 07/27/22 21:15 Antibody Screen NEGATIVE 07/27/22 21:15
--- NOTE | 2022-07-27 23:25 | CT Scan Report ---
Exam(s): CT ABDOMEN + PELVIS With Contrast IV Amt: 86ml EXAM: CT Abdomen and Pelvis With Intravenous Contrast CLINICAL HISTORY: Reason for exam: vag bleeding, s/p hyster. TECHNIQUE: Axial computed tomography images of the abdomen and pelvis with intravenous contrast. CTDI is 19.04 mGy and DLP is 1005.14 mGy-cm. Automated exposure control was utilized for the study. A dose lowering technique was utilized adhering to the principles of ALARA. CONTRAST: Patient received 86ml of IV contrast COMPARISON: Comparison made to prior CT scan of abdomen pelvis from February 27, 2026. FINDINGS: Lung bases: Unremarkable. No mass. No consolidation. ABDOMEN: Liver: Unremarkable. No mass. Gallbladder and bile ducts: Unremarkable. No calcified stones. No ductal dilation. Pancreas: Unremarkable. No mass. No ductal dilation. Spleen: Unremarkable. No splenomegaly. Adrenals: Unremarkable. No mass. Kidneys and ureters: Bilateral renal cyst. No solid mass. No hydronephrosis. Stomach and bowel: Unremarkable. No obstruction. No mucosal thickening. PELVIS: Appendix: No findings to suggest acute appendicitis. Bladder: Unremarkable. No mass. Reproductive: Patient is status post hysterectomy with a low attenuation soft tissue mass in the surgical cavity measuring approximately 71 x 69 x 31 mm ABDOMEN and PELVIS: Intraperitoneal space: Unremarkable. No free air. No significant fluid collection. Bones/joints: No acute fracture. No dislocation. Soft tissues: Unremarkable. Vasculature: Unremarkable. No abdominal aortic aneurysm. Lymph nodes: Unremarkable. No enlarged lymph nodes. IMPRESSION: 1. Status post hysterectomy with residual soft tissue mass measuring 31 x 6 mm x 31 mm, which likely represents a postsurgical hematoma. 2. Bilateral renal cyst. Electronically signed by: Karen Tineo MD 07/27/22 23:24 PM
[2022-07-27] MEDS ORDERED: BUPIVACAINE 0.5 % 5 MG/1 ML MPF 30ML VIAL ONE (23:26)
[2022-07-27] MEDS ORDERED: ATROPINE SULFATE 0.1 MG/ML 10ML SYR IV PRN (23:38)
[2022-07-27] MEDS ORDERED: PROMETHAZINE HCL 6.25 MG in SODIUM CHLORIDE 0.9% 50 ML IV PRN (23:38)
[2022-07-27] MEDS ORDERED: fentaNYL citrate PF 100 MCG/2 ML VIAL IV PRN (23:38)
[2022-07-28] MEDS ORDERED: CLINDAMYCIN 900 MG/D5W 50 ML BAG IV ONE (00:01)
[2022-07-28] MEDS ORDERED: fentaNYL citrate PF 100 MCG/2 ML VIAL ONE ×2 (00:38→00:57)
[2022-07-28] MEDS ORDERED: ETOMIDATE 2 MG/ML 20 ML VIAL IV ONE (00:56)
[2022-07-28] MEDS ORDERED: PROPOFOL IV EMULSION 10 MG/ML 20 ML VIAL IV ONE (00:56)
[2022-07-28] MEDS ORDERED: ONDANSETRON INJ 2 MG/ML 2 ML VIAL ONE (00:56)
[2022-07-28] MEDS ORDERED: NEOSTIGMINE METHYLSULFATE 1 MG/ML 10ML VIAL ONE (00:56)
[2022-07-28] MEDS ORDERED: ROCURONIUM BROMIDE 10 MG/ML 5 ML VIAL IV ONE (00:56)
[2022-07-28] MEDS ORDERED: SUCCINYLCHOLINE 100MG/5ML SYR IV ONE (00:56)
[2022-07-28] MEDS ORDERED: GLYCOPYRROLATE 0.2 MG/ML VIAL ONE (00:56)
[2022-07-28] MEDS ORDERED: MEPERIDINE HCL 25 MG/ML CARP/VIAL IV PRN (01:03)
[2022-07-28] MEDS ORDERED: MEPERIDINE HCL 25 MG/ML CARP/VIAL ONE (01:10)
[2022-07-28] MEDS ORDERED: HYDROmorphone INJ 0.5 MG/0.5 ML SYR ONE (01:16)
[2022-07-28] MEDS: HYDROmorphone INJ 1 MG/ML SYRINGE IV PRN ×2 (01:17→01:24)
[2022-07-28] MEDS ORDERED: ONDANSETRON INJ 2 MG/ML 2 ML VIAL IV PRN (01:23)
[2022-07-28] MEDS ORDERED: IBUPROFEN 600 MG TAB PO PRN (01:23)
[2022-07-28] MEDS ORDERED: oxyCODONE/ACETAMINOPHEN 5mg/325mg TAB PO PRN (01:23)
[2022-07-28] MEDS ORDERED: KETOROLAC 30 MG/ML VIAL IV PRN (01:23)
--- NOTE | 2022-07-28 01:30 | Operative Report ---
PG Post Operative Report Pre & Post Diagnosis Operation Date: 07/27/22 23:05 Pre-Op Diagnosis: Vaginal bleeding Post-Op Diagnosis: Vaginal bleeding I identified the patient and participated in the time-out.: Yes Procedure Operation Date: 07/27/22 23:05 Actual Procedures p Exam under Anesthesia and Diagnostic Laparoscopy - Lizette Mahoney DO Surgeon Lizette Mahoney DO Wafer Line Worker Jose Knapp MD Estimated Blood Loss 100 Findings See Below Vaginal cuff intact. Approx 100cc blood clot removed from vagina at beginning of case. This is in addition to approximately 500cc clots I witnessed in the ER. No active bleeding in vagina. Reyes clear yellow urine. No active bleeding in abdomen/pelvis during laparoscopy. Postop adhesions in abdomen. Specimens none Drains reyes clear yellow, removed at end of case Anesthesia Type General Complications none Disposition Accompanied Patient To Recovery: No Disposition: Recovery Room Indications 41yo postop after laparoscopic hysterectomy 06/30/22, with sudden-onset severe vaginal bleeding and clots Description of Procedure Patient was seen in the emergency department, where a decision was made to proceed to the OR. Informed consent was obtained in the operating room. She elected to proceed with the case. She gave permission for emergency blood transfusion. Patient was taken to the operating room, general anesthesia was administered. She was prepared and draped in the usual sterile fashion in the dorsolithotomy position with feet in yellowfin stirrups. Clindamycin was given preoperatively due to cephalosporin and doxycycline allergies. Timeout was confirmed. Reyes catheter was placed in the bladder, clear yellow urine. Approximately 100 cc of dark red clot was expressed from the vagina. The vagina was suctioned of all clots and blood. A weighted speculum was gently placed in the vagina, and the vaginal cuff was visualized in its entirety. It was intact, with no bleeding. No bleeding noted even after monitoring for at least 5 minutes. Given the amount of bleeding visualized in the emergency department, I was concerned that patient may have had bleeding in the abdomen/pelvis. CT scan showed a small collection of fluid at the vaginal cuff, difficult to determine whether this was just postoperative fluid collection versus a newly forming hematoma. Therefore, decision was made to perform diagnostic laparoscopy to evaluate the pelvis. Gloves were changed and attention was then turned to the abdomen. Using the previous supraumbilical and the lateralmost incision sites, a total of 3 abdominal incisions were made. A varies needle was used to insufflate the abdomen to 15 mmHg CO2 gas. The optical trocar was then placed into the abdomen. Bilateral trocars were placed under direct visualization. The abdomen and pelvis were visualized. No bleeding or clot was noted at all. There was some expected postoperative adhesive disease in the pelvis. A sponge stick was gently placed in the vagina to visualize the internal aspect of the vaginal cuff, and there was no bleeding. The pelvis was irrigated, again no bleeding noted. All trocars were then removed from the abdomen, and it was desufflated of CO2 gas. The skin incisions were reapproximated using 4-0 Vicryl in a subcuticular stitch. 0.5% Marcaine was used as a local anesthetic. Dermabond glue was then applied to all 5 incision sites, the 3 that were reopened today as well as the 2 well-healed sites from the prior hysterectomy. Attention was then turned to the pelvis, where the Reyes catheter was removed. The vagina was examined again, and no bleeding was noted. The patient was then taken to the ICU for recovery, given the hour, PACU was not open. She was in stable and good condition. She received a total of 1 unit packed red blood cells, the second ordered unit was placed on hold given patient's hemodynamic stability. We will plan to check H&H in the morning and monitor symptoms and bleeding status overnight. I attest to the content of the Intraoperative Record and any orders documented therein. Any exceptions are noted below. RIDDLER OPERATOR Minor Procedure Codes Laparoscopy(ic) 51840 Dx Laparoscopy RIDDLER OPERATOR Other Procedure Codes 61160 Exam under Anesth
--- NOTE | 2022-07-28 01:40 | Anesthesiology Progress Note ---
Date of Service July 28, 2022 Anesthesia Post Procedure Vital Signs Vital Signs: Temp Pulse Pulse Resp BP BP Pulse Ox 07/28/22 01:33 36 C L 79 18 141/76 H 100 07/28/22 01:12 36 C L 83 18 135/93 100 07/28/22 01:02 36 C L 102 H 18 112/82 95 07/27/22 23:21 64 23 127/74 100 07/27/22 23:15 70 24 132/75 100 07/27/22 23:00 65 14 126/82 100 07/27/22 22:56 68 21 122/73 100 07/27/22 23:20 36.8 C 70 18 132/75 100 07/27/22 22:30 89 21 128/101 H 100 07/27/22 21:45 77 07/27/22 21:31 70 18 119/79 100 07/27/22 21:22 100 07/27/22 21:00 36.5 C 94 H 17 135/102 H 100 O2 Del Method O2 Flow Rate 07/28/22 01:33 Room Air 07/28/22 01:12 Room Air 07/28/22 01:02 Oxymask 6 07/27/22 23:21 Room Air 07/27/22 23:15 Room Air 07/27/22 23:00 Room Air 07/27/22 22:56 Room Air 07/27/22 23:20 07/27/22 22:30 Room Air 07/27/22 21:45 07/27/22 21:31 Room Air 07/27/22 21:22 Room Air 07/27/22 21:00 Room Air Transfer of Care Handoff Completed per policy Notes Mental Status: alert / awake / arousable Patient Amnestic to Procedure: Yes Nausea / Vomiting: adequately controlled Pain: adequately controlled Airway Patency, RR, SpO2: stable & adequate BP & HR: stable & adequate Hydration State: stable & adequate Anesthetic Complications: no major complications apparent
[2022-07-28] MEDS ORDERED: KETOROLAC 30 MG/ML VIAL ONE (02:05)
[2022-07-28 06:31] LABS: Hematocrit (blood only) 33.3 % (37.0-47.0); Hemoglobin 11.4 g/dl (12.0-16.0)
--- NOTE | 2022-07-28 08:06 | Gynecologic Progress Note ---
Date of Service July 28, 2022 Assessment & Plan Admission and Anticipated Discharge Date Admission Date: July 28, 2022 Subjective Doing well this morning. No vaginal bleeding. Awake, sitting up in bed, feeling better. Exam: abdomen soft, incisions CDI. No vaginal bleeding on exam. Anticipate DC home today. Will allow to eat. Results & Data Vital Signs (Past 12 Hours) Vital Signs Temp Pulse Pulse Pulse Resp BP BP 07/28/22 03:05 36.5 C 80 18 07/28/22 02:24 74 17 125/76 07/28/22 02:14 77 18 125/76 07/28/22 02:04 36 C L 78 17 114/83 07/28/22 01:54 36.1 C L 75 20 127/71 07/28/22 01:44 36 C L 72 18 131/71 07/28/22 01:33 36 C L 79 18 141/76 H 07/28/22 01:12 36 C L 83 18 135/93 07/28/22 01:02 36 C L 102 H 18 112/82 07/27/22 23:21 64 23 127/74 07/27/22 23:15 70 24 132/75 07/27/22 23:00 65 14 126/82 07/27/22 22:56 68 21 122/73 07/27/22 23:20 36.8 C 70 18 132/75 07/27/22 22:30 89 21 128/101 H 07/27/22 21:45 77 07/27/22 21:31 70 18 119/79 07/27/22 21:22 07/27/22 21:00 36.5 C 94 H 17 135/102 H BP Pulse Ox O2 Del Method O2 Flow Rate 07/28/22 03:05 125/76 97 Room Air 07/28/22 02:24 98 Room Air 07/28/22 02:14 97 Room Air 07/28/22 02:04 99 Room Air 07/28/22 01:54 97 Room Air 07/28/22 01:44 100 Room Air 07/28/22 01:33 100 Room Air 07/28/22 01:12 100 Room Air 07/28/22 01:02 95 Oxymask 6 07/27/22 23:21 100 Room Air 07/27/22 23:15 100 Room Air 07/27/22 23:00 100 Room Air 07/27/22 22:56 100 Room Air 07/27/22 23:20 100 07/27/22 22:30 100 Room Air 07/27/22 21:45 07/27/22 21:31 100 Room Air 07/27/22 21:22 100 Room Air 07/27/22 21:00 100 Room Air
--- NOTE | 2022-08-01 12:59 | Discharge Summary ---
Date of Service August 01, 2022 Admission HPI Per Admitting Provider 41yo s/p laparoscopic hysterectomy on 06/30/22 presented to ER [facility] with vaginal bleeding. She was at her child's softball game, when she felt like she had to urinate, then started bleeding instead of urinating. She came directly to the ER, and was found to have a large amount of bleeding. Attempt at speculum exam by ER physician was too painful and too bloody to continue. She has not eaten this afternoon or evening. She had been feeling well after the hysterectomy until [facility]. She states she has not lifted anything heavier than 25 lbs, but has been getting back to normal activities otherwise. No bleeding until today. During my discussion and examination in the ER, patient became more pale, began to feel nauseated, and threw up clear spit. She felt like she was getting acutely worse. Discharge Data Procedures Performed Operation Date: 07/27/22 23:05 Actual Procedures p Exam under Anesthesia and Diagnostic Laparoscopy(Not Applicable) - Lizette Mahoney, DO Hospital Course (1) Vaginal bleeding: Proceeding to OR for emergent exam under anesthesia, repair of vaginal cuff, obtain hemostasis. Reviewed consent form in ER with patient, she is agreeable. Questions answered. Suspect blood loss is likely from separation of vaginal cuff, however will be able to see better when patient is under anesthesia and can perform better exam. 2u PRBC ordered for transfusion to start now. Monitored overnight after surgery, no bleeding. Discharged home in AM. Coding Level of Care Code None Diagnoses Vaginal bleeding N93.9
== END 2022-07-28 09:50 | disposition home or self-care (01) | DRG 909 ==
LOC: ED 20:59 → OR 23:26 → INTOOBSV 07-28 01:23 → 4E2 07-28 01:23